=== PATIENT | female | born 1980 | race Caucasian/White ===

== ENCOUNTER 2019-10-21 22:15 | Inpatient (IN) | payer SELFPAY ==
[~2019-10-21] VITALS: Ht 152.4 cm; Wt 60.3 kg
[2019-10-21] MEDS ORDERED: ACETAMINOPHEN 325 MG TABLET. PO PRN (22:45)
[2019-10-21 22:57] LABS: BILIRUBIN,URINE NEGATIVE (NEG); CLARITY,URINE CLEAR; COLOR,URINE YELLOW; NITRITE,URINE POSITIVE (NEG); PH,URINE 5.5 (<5.0-8.0); PROTEIN,URINE NEGATIVE (NEG-TRACE)
[2019-10-21 23:03] LABS: BARBITURATES NEG (NEG); BENZODIAZEPINES NEG (NEG); CANNABINOIDS NEG (NEG); COCAINE NEG (NEG); METHADONE NEG (NEG); OPIATES NEG (NEG); PHENCYCLIDINE NEG (NEG)
[2019-10-21 23:06] LABS: AMPHETAMINE/METHAMPHETAMINE POS (NEG)
--- NOTE | 2019-10-21 23:06 | PDOC1 ---
OB - History Hx of Present Care: None Ultrasounds: No ultrasounds Obstetrical Complications: None Medical Complications: None Past Family/Social History * Past Medical, Surgical, Family and Obstetric Histories reviewed from chart. Blood Type: Unknown Rubella: Unknown RPR/VDRL: Unknown GBS Status: Unknown HBsAG: Unknown OB - Chief Complaint & HPI Date of Admission: Date of Admission: Oct 21, 2019 at 22:15 Chief Complaint/History : 7 Para: 4 EGA: 35 Reason for admission: labor, rupture of membranes Admission Nurse Assessment Rev: Yes OB - Admission Exam Physical Exam HEENT: Normal Heart: Regular Rate Lungs: Clear Abdomen: Gravid, Non tender, Soft Extremities: Edema Reflexes: Normal Cervical Dilatation: 4cm Effacement: 100% Station: -3 Membranes: Ruptured Amniotic Fluid: Clear Heart Rate: Normal Accelerations: Accelerations Present Decelerations: No decelerations Contractions on Admission: 6-10 Minutes Apart Intensity: Mild Text A: 35 wks IUP by today's sono PPROM No PNC H/o Drug use GBS unknown P: ADmit PTL with PPROM management. Start Pen G prophylaxis for GBS unknown status. Pitocin augmentation if necessary. SHANIA ANGEL Jr, MD Oct 21, 2019 23:06
[2019-10-21 23:11] LABS: SQUAMOUS EPITHELIAL CELL,UR FEW /LPF
[2019-10-21 23:12] LABS: BACTERIA,URINE MANY /HPF (0-FEW); RBC,URINE 0 /HPF (0-2)
[2019-10-21] MEDS ORDERED: 0.9 % SODIUM CHLORIDE 10 ML DISP.SYRIN. IV PRN (23:15)
--- NOTE | 2019-10-21 23:15 | RAD ---
Exam: Ultrasound OB limited Indication: No care Technique: Real-time grayscale and color Doppler images of the pelvis were obtained by the department quality analyst/technical writer. Comparisons: None FINDINGS: There is a single live intrauterine gestation with heart rate measured at 155 bpm. Fetus is cephalic in position. measurements as follows: BPD: 8.7 cm corresponding to 35 weeks 1 day Head circumference: 32.1 cm corresponding to 36 weeks 1 day Abdominal circumference: 31.8 cm corresponding to 35 weeks 5 days Femur length: 7.0 cm corresponding to 36 weeks 0 days LADONNA measured at 5.4 cm. Placenta is anterior and appears normal. IMPRESSION: 1. Single live intrauterine gestation measuring 35 weeks 5 days. 2. LADONNA measures 5.4 Electronically signed by: Lurdes Sams MD (10/21/2019 11:12 PM) [id number]
[2019-10-21] MEDS ORDERED: IV RINGERS,LACTATED 1000ML 1,000 ML IV SCH (23:30)
[2019-10-21] MEDS ORDERED: IBUPROFEN 400 MG TABLET. PO PRN (23:30)
[2019-10-21] MEDS ORDERED: TERBUTALINE 1 MG/ML VIAL. SQ PRN (23:30)
[2019-10-21] MEDS ORDERED: ONDANSETRON PF 4 MG/2 ML VIAL. IVP PRN (23:30)
[2019-10-21] MEDS ORDERED: CITRIC ACID/SODIUM CITRATE 30 ML SOLUTION. PO PRN (23:30)
[2019-10-21] MEDS ORDERED: OXYTOCIN 30 UNIT/500 ML PREMIX 500 ML IV PRN (23:30)
[2019-10-21] MEDS ORDERED: LIDOCAINE 1% PF 30 ML VIAL. INJ PRN (23:30)
[2019-10-22] MEDS ORDERED: PENICILLIN G K 5,000,000 UNIT in IV DEXTROSE 5% 100ML 100 ML IV ONE
[2019-10-22] MEDS ORDERED: BETAMET ACET&NA PHOS 30 MG/5 ML VIAL. IM SCH
[2019-10-22 00:14] LABS: BASO # 0.1 x10^3/uL (0.0-0.2); BASO % 1 % (0-3); EOS % 0 % (0-3); HEMOGLOBIN 11.8 g/dL (12.0-15.5); LYMPH % 18 % (24-48); MEAN CORPUSCULAR HEMOGLOBIN 29 pg (25-35); MEAN CORPUSCULAR HGB CONC 35 g/dL (31-37); MEAN CORPUSCULAR VOLUME 84 fL (79-100); MONO # 0.7 x10^3/uL (0.0-1.1); MONO % 6 % (0-9); NEUT % 74 % (31-73); PLATELET COUNT 227 x10^3/uL (140-400); RED BLOOD COUNT 4.04 x10^6/uL (3.50-5.40); RED CELL DISTRIBUTION WIDTH 12.9 % (11.5-14.5); WHITE BLOOD COUNT 10.8 x10^3/uL (4.0-11.0)
[2019-10-22] MEDS: IV RINGERS,LACTATED 1000ML 1,000 ML IV SCH ×2 (00:27→13:15)
[2019-10-22 00:43] VITALS: BP 93/61
[2019-10-22] MEDS: PENICILLIN G K 2,500,000 UNIT in IV DEXTROSE 5% 50 ML IV SCH ×3 (04:32→13:14)
[2019-10-22] MEDS ORDERED: OXYTOCIN 30 UNIT/500 ML PREMIX 500 ML IV PRN ×2 (06:30→14:00)
[2019-10-22 07:39] LABS: CALCIUM 8.4 mg/dL (8.5-10.1); CREATININE 0.5 mg/dL (0.6-1.0); GFR 138.8
[2019-10-22 07:46] LABS: ALBUMIN 2.2 g/dL (3.4-5.0); ALBUMIN/GLOBULIN RATIO 0.6 (1.0-1.7); TOTAL BILIRUBIN 0.2 mg/dL (0.2-1.0); TOTAL PROTEIN 5.9 g/dL (6.4-8.2)
--- NOTE | 2019-10-22 13:48 | PDOC ---
VAGINAL DELIVERY DATE DATE: 10/22/19 TIME: 13:47 : 7 Para: 5 EGA: 35 VAGINAL DELIVERY: VTX VACCUM ASSISTED: No PLACENTA: Spontaneous 8/9 SEX: Female WEIGHT Weight [ pending ] Nuchal Cord: No Amniotic Fluid: Clear PAIN: Natural EPISIOTOMY: No EXTENSION: No EBL 300 ml COMPLICATIONS none CONDITION pt. stable Placenta 30% abruption Signs of Intrauterine Infectio: None Shoulder Dystocia: No SHANIA ANGEL Jr, MD Oct 22, 2019 13:48
[2019-10-22] MEDS ORDERED: MMR per PROTOCOL. MC PRN (14:00)
[2019-10-22] MEDS ORDERED: DOCUSATE SODIUM 100 MG CAPSULE. PO PRN (14:00)
[2019-10-22] MEDS ORDERED: ACETAMINOPHEN 325 MG TABLET. PO PRN (14:00)
[2019-10-22] MEDS ORDERED: HYDROCORTISONE 1% TOPICAL OINTMENT 30GM TUBE. TP PRN (14:00)
[2019-10-22] MEDS ORDERED: TDaP (Adacel) per PROTOCOL. MC PRN (14:00)
[2019-10-22] MEDS ORDERED: PHENYLEPH/MINERAL OIL/PETROLAT RECTAL OINTMENT TUBE. RC PRN (14:00)
[2019-10-22] MEDS ORDERED: MAGNESIUM HYDROXIDE 2,400 MG/30 ML ORAL.SUSP. PO PRN (14:00)
[2019-10-22] MEDS ORDERED: IBUPROFEN 400 MG TABLET. PO PRN (14:00)
[2019-10-22] MEDS ORDERED: SIMETHICONE 80 MG TAB.CHEW PO PRN (14:00)
[2019-10-22] MEDS ORDERED: MAG HYDROX/ALUMINUM HYD/SIMETH 30 ML ORAL.SUSP PO PRN (14:00)
[2019-10-22] MEDS ORDERED: BENZOCAINE 20% TOPICAL AEROSOL SPRAY 57GM CAN. TP PRN (14:00)
[2019-10-22] MEDS ORDERED: diphenhydrAMINE HCL 25 MG CAPSULE PO PRN (14:00)
[2019-10-22] MEDS ORDERED: ZOLPIDEM 5 MG TABLET. PO PRN (14:00)
[2019-10-22] MEDS ORDERED: 0.9 % SODIUM CHLORIDE 10 ML DISP.SYRIN. IV PRN (14:00)
[2019-10-22] MEDS ORDERED: MULTIVITAMIN with MINERAL TABLET. PO SCH (15:00)
--- NOTE | 2019-10-22 16:07 | NUR ---
SS following up with referral regarding Mother UDS positive for Methamphetamines and no care. SS reviewed pt chart and discussed with RN. SS was notified that mother wants to give infant up for adoption. SS met with mother in room to discuss circumstances surrounding the referral. Mother reported that she just spent a year in shelter and then time in rehab and cannot take care of a baby. Mother reported that she is NOT leaving this hospital with the infant and wants to terminate her rights. Mother reported that she will leave here at the hospital. Mother UDS Methamphetamine positive. Mother reported having no care. DCF hotline report made for abandonment, mother's positive UDS, and no care. Intake#[id number]. SS will continue to follow.
[2019-10-22 16:20] VITALS: BP 92/61
[2019-10-22] MEDS ORDERED: FERROUS SULFATE 325 MG TABLET. PO SCH (17:00)
[2019-10-22 17:18] VITALS: BP 92/61
[2019-10-22 17:30] VITALS: BP 87/50
[2019-10-22 20:11] VITALS: BP 101/60
[2019-10-23 18:09] LABS: RUBELLA IGG ANTIBODY 1.04 index (Immune >0.99)
[2019-10-24 10:13] LABS: HCV ULTRA QUANT PCR 580000 IU/mL (.)
--- NOTE | 2019-10-28 09:08 | PATHOLOGY ---
[facility] Accession Number: [id number] . 01 Material submitted: . placenta - CORD AND PLACENTA . 01 Clinical history: . LATE ROM WITH NO PNC; WITH POSSIBLE ABRUPTIO PLACENTA EDC: 11/20/2019; GESTATION: 35.6 WKS; POSITIVE FOR HEP C . 02 Diagnosis: 567 gram late pre-term placenta of an estimated 36 weeks gestation with attached membranes and umbilical cord: - Acute chorionitis and focal early acute chorioamnionitis. - Focal mild acute phlebitis of umbilical cord. - Chorangiosis, focal. (BERTA:phu; 10/27/2019) R 10/27/2019 1706 Local . 02 Comment: The placenta shows no obvious evidence of abruptio placenta. (BERTA:phu; 10/27/2019) . 02 Electronically signed: . Jay Barragan MD, Pathologist NPI- [id number] . 01 Gross description: . Received in formalin labeled "Velasco, Melva, placenta" is a ray placenta with attached membranes and umbilical cord. The placental disc measures 19.0 x 18.8 x 3.5 cm. The membranes are transparent and thin with the site of membrane rupture 10.5 cm from the placental disc. The membranes have marginal insertion. The umbilical cord measures 33.6 cm in length, 1.6 cm in diameter, contains three vessels and inserts eccentrically, 5.1 cm from the closest placental margin. There are no true knots in the umbilical cord. The trimmed placental weight is 567 grams. The surface is blue-white with minimal subchorionic fibrin. Amnion nodosum is not present. Cysts are not present. The maternal surface has intact cotyledons and no basal hemorrhage. Sectioning through the placental disc reveals no calcifications and no acute or chronic infarcts. Aligner sections are submitted as follows: . A1 proximal and distal umbilical cord A2 membranes, rolled A3 account executive sales representative peripheral placenta A4 account executive sales representative central placenta A5 additional maternal surface A6 surface adjacent to umbilical cord insertion site ([facility] [place]; 10/26/2019) [facility] 10/26/2019 1206 Local . 02 Pathologist provided ICD-10: O41.1230, O43.893, Z37.9, Z3A.36 . 02 CPT . 106315 Specimen Comment: A courtesy copy of this report has been sent to [phone] Specimen Comment: Report sent to Performed at: 01 [facility] [address], [place] [id number] MD Raghav Leavitt MD Phone: [phone] Performed at: 02 [facility] [address] [place], [place] [id number] MD Jay Barragan MD Phone: [phone]
== END 2019-10-22 20:15 | disposition home or self-care (01) | DRG 805 ==
LOC: OBSVTOIN 22:15 → 3 SO LND 22:15 → 3 NORTH 10-22 16:20
PROVIDERS: ADMIT Obstetrics & Gynecology; ATTEND Obstetrics & Gynecology
PROC: 10E0XZZ Delivery of Products of Conception, External Approach (ICD-10-PCS; principal; 2019-10-22)
DX: O60.14X0 Preterm labor third trimester with preterm delivery third trimester, not applicable or unspecified (principal); O45.93 Premature separation of placenta, unspecified, third trimester; Z37.0 Single live birth; Z3A.35 35 weeks gestation of pregnancy; Z20.828 Contact with and (suspected) exposure to other viral communicable diseases
CPT/HCPCS: 36415; 76815; 80053; 80307; 81001; 85025; 86592; 86703; 86706; 86708; 86762; 86803; 86850; 86900; 86901; 87077; 87086; 87186; 87426; 87522; 87653; 88307; J0702; J2540; J2590; J7060; J7120; G0378; U0003-CS